=== PATIENT | male | born 1975 | race Caucasian/White ===

== ENCOUNTER 2024-12-29 08:35 | Day surgery (SDC) | payer BC ==
[2024-12-29 09:16] VITALS: TEMP 97.5
[2024-12-29] MEDS: LACTATED RINGERS 1,000 ML IV SCH (09:23)
[2024-12-29] MEDS: IV FLUID CONTINUATION 1,000 ML IV ONE (09:24)
[2024-12-29] MEDS ORDERED: PROPOFOL 10 MG/ML 20 ML VIAL IV ONE (09:46)
--- NOTE | 2024-12-29 09:49 | P.GSHP ---
History of Present Illness H&P Date: 12/29/24 Chief Complaint: Colon cancer screening 49-year-old male here for colonoscopy. No bowel complaints. Has not had 1 previously. Patient's brother had a tumor removed last year. Past Medical History Past Medical History: No Reported History History of Any Multi-Drug Resistant Organisms: None Reported Additional Past Surgical History / Comment(s): vasectomy Past Anesthesia/Blood Transfusion Reactions: No Reported Reaction Additional Past Anesthesia/Blood Transfusion Reaction / Comment(s): has not had anesthesia Smoking Status: Former smoker - Past Family History Mother Family Medical History: Cancer Additional Family Medical History / Comment(s): of breast cancer age 47 Medications and Allergies Home Medications Medication Instructions Recorded Confirmed Type Ancestral Supplement 1 tab PO DAILY 12/23/24 12/29/24 History Ascorbic Acid [Vitamin C] 1,000 mg PO DAILY 12/23/24 12/29/24 History Cholecalciferol (Vitd3)/Vit K2 1 each PO DAILY 12/23/24 12/29/24 History [Vit D3-Vit K2 125-100 Mcg Sfgl] Iodine [Bladderwrack Iodine] 151 mcg PO DAILY 12/23/24 12/29/24 History Magnesium Maleate 1 tab PO DAILY 12/23/24 12/29/24 History Potassium Citrate 1 tab PO DAILY 12/23/24 12/29/24 History Pumpkin Oil 1 tab PO DAILY 12/23/24 12/29/24 History Vitamin B Complex 1 tab PO DAILY 12/23/24 12/29/24 History Allergies Allergy/AdvReac Type Severity Reaction Status Date / Time No Known Allergies Allergy Verified 12/29/24 09:09 Surgical - Exam Vital Signs Temp Pulse Resp BP Pulse Ox 97.5 F L 86 18 148/87 99 12/29/24 09:14 12/29/24 09:14 12/29/24 09:14 12/29/24 09:14 12/29/24 09:14 Physical exam: General: Well-developed, well-nourished HEENT: Normocephalic, sclerae nonicteric Abdomen: Nontender, nondistended Extremities: No edema Neuro: Alert and oriented Assessment and Plan (1) Colon cancer screening Narrative/Plan: Will proceed with colonoscopy at this time. Current Visit: Yes Status: Acute Code(s): Z12.11 - ENCOUNTER FOR SCREENING FOR MALIGNANT NEOPLASM OF COLON SNOMED Code(s): 641930781
--- NOTE | 2024-12-29 10:06 | P.PCN ---
Date of Procedure: 12/29/24 Procedure(s) Performed: PREOPERATIVE DIAGNOSIS: Colon cancer screening with family history of colon cancer POSTOPERATIVE DIAGNOSIS: Ascending colon polyp, rectal polyp PROCEDURE: Colonoscopy with snare polypectomy ANESTHESIA: MAC SURGEON: Rigoberto Wolf M.D. SPECIMENS: Polyps ENDOSCOPIC PROCEDURE: The patient was placed on the endoscopy table in the left decubitus position. The Olympus colonoscope was inserted into the anus and passed under direct visualization to the base of the cecum. The appendiceal orifice was visualized. From that point the scope was slowly withdrawn inspecting all surfaces carefully. There were no neoplastic inflammatory or polypoid lesions throughout the cecum. In the proximal ascending colon the patient had a small polyp that was removed using the snare with cautery technique. The remainder of the ascending transverse and descending colon appeared normal. In the distal rectum a small flat polyp was also noted and removed using the snare with cautery technique. The remainder of the rectum was normal. There was no visible diverticulosis. Digital rectal examination was normal. The patient was taken to the recovery room in stable condition per anesthesia guidelines. RECOMMENDATIONS: Await biopsy results. Plan repeat colonoscopy 5 years.
[2024-12-29 10:19] VITALS: BP 124/76; PULSE 65; RESP 16
== END 2024-12-29 10:38 | disposition home or self-care (01) ==
LOC: ORWHC2ENDO 08:35
PROVIDERS: ATTEND Surgery
DX: Z12.11 Encounter for screening for malignant neoplasm of colon (principal); D12.2 Benign neoplasm of ascending colon; K62.1 Rectal polyp; Z87.891 Personal history of nicotine dependence; Z80.0 Family history of malignant neoplasm of digestive organs
CPT/HCPCS: 88305; 45385; J2704